=== PATIENT | female | born 1975 | race Caucasian/White ===

== ENCOUNTER 2023-12-28 16:01 | Emergency (ER) | payer MEDICAID ==
[~2023-12-28] VITALS: Ht 170.2 cm; Wt 95.0 kg
[2023-12-28 16:09] VITALS: O2SAT 98
[2023-12-28 16:59] LABS: BASOPHILS % 0.4 % (0.0-2.0); EOSINOPHILS % 0.2 % (0.0-5.0); HEMATOCRIT. 39.5 % (36.0-48.0); HEMOGLOBIN. 12.7 g/dL (12.0-16.0); LYMPHOCYTES % 7.8 % (20.0-50.0); MEAN CORPUSCULAR HEMOGLOBIN 29.1 pg (28.0-32.0); MEAN CORPUSCULAR HGB CONC 32.2 g/dL (31.0-37.0); MEAN CORPUSCULAR VOLUME 90.4 fL (81.0-99.0); MEAN PLATELET VOLUME 7.6 fl (7.4-10.4); MONOCYTES % 10.2 % (2.0-8.0); NEUTROPHILS % 81.4 % (40.0-76.0); PLATELET 266 x1000/uL (130-400); RED BLOOD CELL COUNT 4.37 mill/uL (4.2-5.4); RED CELL DISTRIBUTION WIDTH 13.3 % (11.6-14.6); WHITE BLOOD COUNT 13.3 x1000/uL (4.5-11.0)
[2023-12-28 17:05] LABS: POTASSIUM 4.6 mEq/L (3.5-5.1)
[2023-12-28 17:06] LABS: CALCIUM 9.8 mg/dL (8.7-10.4)
[2023-12-28 17:24] LABS: CLARITY URINE CLEAR (CLEAR); COLOR URINE YELLOW (YELLOW); GLUCOSE URINE NEGATIVE (NEGATIVE); KETONES URINE NEGATIVE (NEGATIVE); PROTEIN URINE NEGATIVE (NEGATIVE); SPECIFIC GRAVITY URINE 1.004 (1.005-1.030)
[2023-12-28 17:25] LABS: LEUKOCYTE ESTERASE URINE 2+ (NEGATIVE); NITRITE URINE NEGATIVE (NEGATIVE); OCCULT BLOOD URINE 1+ (NEGATIVE); UROBILINOGEN URINE 0.2 E.U./dL (0.2-1.0)
[2023-12-28 17:29] LABS: BACTERIA URINE TRACE; SQUAMOUS EPITHELIAL CELL URINE 1+ /lpf (RARE/1+)
[2023-12-28] MEDS ORDERED: IBUP-2028 MT (20:45)
[2023-12-28] MEDS ORDERED: CEPH500C2 MT (20:45)
[2023-12-28] MEDS: IBUPROFEN 400MG TABLET PO ONE (21:43)
[2023-12-28 21:48] VITALS: BP 110/67; PULSE 100; RESP 16; TEMP 36.72516; O2SAT 100
== END 2023-12-28 21:50 | disposition home or self-care (01) ==
LOC: ER 16:01
DX: N39.0 Urinary tract infection, site not specified (principal); I10 Essential (primary) hypertension; Z98.890 Other specified postprocedural states; Z90.49 Acquired absence of other specified parts of digestive tract; Z91.013 Allergy to seafood
CPT/HCPCS: 36415; 80048; 81003; 81025; 85025; 87077; 87186; 99283